=== PATIENT | female | born 1985 | race African-American/Black ===

== ENCOUNTER 2018-01-18 09:45 | Inpatient (IN) | payer OTHER ==
[2018-01-18 14:39] VITALS: BMI 46.3
[2018-01-18] MEDS ORDERED: OXYTOCIN 20 UNITS in 0.9% NS 20 UNIT/1,000 ML INFUS.BAG IV ONE ×2 (15:08→21:44)
[2018-01-18] MEDS ORDERED: DEXTROSE 5%-LACTATED RINGERS 1,000 ML IV SCH (15:30)
[2018-01-18] MEDS ORDERED: BUTORPHANOL TARTRATE 1 MG/ML VIAL IVPUSH ONE (15:30)
[2018-01-18] MEDS ORDERED: PROMETHAZINE HCL 25 MG/1 ML VIAL IVPUSH ONE (15:30)
[2018-01-18] MEDS ORDERED: AMPICILLIN SODIUM 2 GM VIAL ONE (15:31)
--- NOTE | 2018-01-18 15:33 | HP ---
Past Medical History - Primary Care Physician PCP:: Isidoro Bess - Admission Chief Complaint: 39.4 weeks, labor History of Present Illness: 33 yo g 3 p2002 edc by 01/31/18 , in labor , cx 3 cm 80 vx 100 , mi, fhr cat 1 contraction irregular History Source: Patient Limitations to Obtaining History: No Limitations - Past Medical History Pulmonary: Yes: Other ...: 3 ...Para: 2 ...Term: 2 ...LMP: 04/16/17 ... Weeks Gestation by Dates: 39.4 ...EDC by Dates: 01/21/18 Heme/Onc: Yes: Anemia Infectious Disease: Yes: Other (txoplasmosis) - Past Surgical History Hx Myomectomy: No Hx Transabdominal Cerclage: No - Smoking History Smoking history: Never smoked Have you smoked in the past 12 months: No - Alcohol/Substance Use Hx Alcohol Use: No - Social History Usual Living Arrangement: Yes: Alone History of Recent Travel: No Home Medications - Allergies Allergies/Adverse Reactions: Allergies Allergy/AdvReac Type Severity Reaction Status Date / Time egg Allergy Verified 01/18/18 14:30 pineapple Allergy Verified 01/18/18 14:30 - Home Medications Home Medications: Ambulatory Orders Tablet 1 tablet PO DAILY 01/18/18 Review of Systems - Review of Systems Constitutional: reports: No Symptoms Eyes: reports: No Symptoms HENT: reports: No Symptoms Neck: reports: No Symptoms Cardiovascular: reports: No Symptoms Respiratory: reports: No Symptoms Gastrointestinal: reports: No Symptoms Genitourinary: reports: No Symptoms Breasts: reports: No Symptoms Reported Musculoskeletal: reports: No Symptoms Integumentary: reports: No Symptoms Neurological: reports: No Symptoms Endocrine: reports: No Symptoms Hematology/Lymphatic: reports: No Symptoms Psychiatric: reports: No Symptoms Physical Exam - Maternity Vital Signs: Vital Signs Temperature 98.3 F 01/18/18 14:19 Pulse Rate 82 01/18/18 14:19 Respiratory Rate 18 01/18/18 14:19 Blood Pressure 126/78 01/18/18 14:19 O2 Sat by Pulse Oximetry (%) Constitutional: Yes: Well Nourished, No Distress, Calm Eyes: Yes: WNL, Conjunctiva Clear, EOM Intact HENT: Yes: WNL, Atraumatic, Normocephalic Neck: Yes: WNL, Supple, Trachea Midline Cardiovascular: Yes: WNL, Regular Rate and Rhythm Breast(s): Yes: WNL - Abdominal Exam/OB Fundal Height: 40 Number of Fetuses: Single Presentation: Vertex Contractions: Yes Regularity: Irregular Intensity: Moderate Monitor Mode: External Heart Rate Location: [facility] Category: I Accelerations: Uniform Decelerations: None - Vaginal Exam/OB Vaginal Bleediing: Bloody Show Speculum Exam: No Dilatation (cm): 3 cm Effacement (%): 80 Amniotic Membrane Status: Intact Presentation: Vertex/Position Station: -3 - Physical Exam Musculoskeletal: Yes: WNL Extremities: Yes: WNL Edema: LLE: Trace, RLE: Trace Deep Tendon Reflex Grade: Normal +2 ...Motor Strength: WNL Psychiatric: Yes: WNL Hemorrhage Risk Assessment - Risk Factors Medium Risk Factors: Yes: None High Risk Factors: Yes: None Risk Score: 1 Risk Level: Medium Risk Problem List - Problems (1) with 39 completed weeks gestation Code(s): Z3A.39 - 39 WEEKS GESTATION OF (2) Labor established Code(s): BCB5027 - Assessment/Plan admit, if irregular contraction pitocin stimulation, rba discussed
[2018-01-18] MEDS: AMPICILLIN - 2 GM in SODIUM CHLORIDE 100 ML IVPB ONE ×2 (15:39→15:40)
[2018-01-18 15:40] LABS: BASO % 0.1 % (0-2.0); EOS % 0.6 % (0-4.5); HEMATOCRIT 39.2 % (32.4-45.2); HEMOGLOBIN 13.5 GM/dL (10.7-15.3); LYMPH % 23.7 % (8-40); MCH 31.4 pg (25.7-33.7); MCHC 34.4 g/dl (32.0-36.0); MEAN CELL VOLUME 91.4 fl (80-96); MEAN PLT VOLUME 7.9 fl (7.5-11.1); MONO % 12.4 % (3.8-10.2); NEUT % 63.2 % (42.8-82.8); PLATELET COUNT 276 K/MM3 (134-434); RBC 4.29 M/mm3 (3.60-5.2); RDW 14.4 % (11.6-15.6); WHITE BLOOD COUNT 6.3 K/mm3 (4.0-10.0)
[2018-01-18 15:51] LABS: INR 0.94 (0.82-1.09); PROTHROMBIN TIME (PATIENT) 10.6 SEC (9.7-13.0)
[2018-01-18 15:54] LABS: ACTIVATED PTT 27.2 SECONDS (26.9-34.4)
[2018-01-18 16:58] LABS: ANION GAP 13 (8-16); BLOOD UREA NITROGEN 6 mg/dL (7-18); CALCIUM 9.2 mg/dL (8.5-10.1); CHLORIDE 106 mmol/L (98-107); CO2 21 mmol/L (21-32); CREATININE 0.6 mg/dL (0.55-1.02); GLUCOSE,RANDOM 69 mg/dL (74-106); POTASSIUM 3.9 mmol/L (3.5-5.1); SODIUM 140 mmol/L (136-145)
[2018-01-18] MEDS ORDERED: OXYTOCIN 30 UNITS in 0.9% NS 30 UNIT/500 ML INFUS.BAG IVPB SCH (17:15)
[2018-01-18] MEDS ORDERED: BUTORPHANOL TARTRATE 1 MG/ML VIAL ONE ×2 (18:02)
[2018-01-18] MEDS ORDERED: PROMETHAZINE HCL 25 MG/1 ML VIAL ONE (18:02)
[2018-01-18] MEDS ORDERED: AMPICILLIN SODIUM 1 GM VIAL ONE (19:39)
[2018-01-18] MEDS ORDERED: BENZOCAINE 28 GM HEMORRHOIDAL OINTMENT TP PRN (22:10)
[2018-01-18] MEDS ORDERED: BISACODYL 10 MG SUPP.RECT RC PRN (22:10)
[2018-01-18] MEDS ORDERED: METHYLERGONOVINE MALEATE 0.2 MG/1 ML AMP IM PRN (22:10)
[2018-01-18] MEDS ORDERED: BENZOCAINE 20% 57 GM BOTTLE TP PRN (22:10)
[2018-01-18] MEDS ORDERED: WITCH HAZEL 50% (TUCKS) 40 PAD/JAR PAD TP PRN (22:10)
[2018-01-18] MEDS ORDERED: OXYTOCIN 20 UNITS in 0.9% NS 20 UNIT/1,000 ML INFUS.BAG IV SCH (22:15)
[2018-01-18] MEDS ORDERED: D5W-LR W/ 20 UNITS OXYTOCIN 20 UNIT/1,000 ML INFUS.BAG IV SCH (22:15)
[2018-01-18 22:57] LABS: ARTERIAL BLD GAS O2 SATURATION 79.9 % (90-98.9); ARTERIAL BLOOD GAS BASE EXCESS -1.6 meq/l (-2-2); ARTERIAL BLOOD GAS PCO2 41.9 mmHg (35-45); ARTERIAL BLOOD GAS pH 7.36 (7.35-7.45)
[2018-01-18 23:01] LABS: ARTERIAL BLOOD GAS PO2 38.3 mmHg (80-100); VENOUS PH 7.28 (7.32-7.42)
[2018-01-18 23:02] LABS: VENOUS PC02 56.2 mmHg (38-52); VENOUS PO2 21.5 mmHg (28-48)
[2018-01-19] MEDS: AMPICILLIN - 1 GM in SODIUM CHLORIDE 100 ML IVPB SCH ×2 (00:25→10:22)
[2018-01-19 07:46] LABS: BASO % 0.6 % (0-2.0); EOS % 0.1 % (0-4.5); HEMATOCRIT 41.2 % (32.4-45.2); LYMPH % 14.3 % (8-40); MEAN CELL VOLUME 91.4 fl (80-96); MEAN PLT VOLUME 7.7 fl (7.5-11.1); MONO % 9.4 % (3.8-10.2); NEUT % 75.6 % (42.8-82.8); PLATELET COUNT 273 K/MM3 (134-434); RBC 4.51 M/mm3 (3.60-5.2); RDW 14.5 % (11.6-15.6); WHITE BLOOD COUNT 14.6 K/mm3 (4.0-10.0)
[2018-01-19] MEDS: PRENATAL VITAMINS W/ FOLIC ACID TABLET (FP) PO SCH (09:17)
[2018-01-19] MEDS: FERROUS SO4 325 MG TABLET (FP) PO SCH ×2 (09:18→22:37)
[2018-01-19] MEDS: IBUPROFEN 600 MG TABLET (FP) PO PRN (09:18)
[2018-01-19] MEDS: ACETAMINOPHEN 325 MG TABLET (FP) PO PRN (09:19)
[2018-01-19 19:05] LABS: BASO % 0.2 % (0-2.0); EOS % 2.7 % (0-4.5); HEMATOCRIT 37.5 % (32.4-45.2); LYMPH % 22.6 % (8-40); MCH 31.8 pg (25.7-33.7); MCHC 34.7 g/dl (32.0-36.0); MEAN CELL VOLUME 91.7 fl (80-96); MEAN PLT VOLUME 7.7 fl (7.5-11.1); MONO % 9.8 % (3.8-10.2); NEUT % 64.7 % (42.8-82.8); PLATELET COUNT 231 K/MM3 (134-434); RBC 4.08 M/mm3 (3.60-5.2); RDW 14.7 % (11.6-15.6); WHITE BLOOD COUNT 9.4 K/mm3 (4.0-10.0)
--- NOTE | 2018-01-19 19:47 | PN ---
Post Progress Note - Subjective Subjective: 33 yo Para 3 status post vaginal delivery, seen and evaluated. Doing well. Post Day: 1 Type of Delivery: Vital Signs: Vital Signs Temperature 97.9 F 01/19/18 14:00 Pulse Rate 72 01/19/18 14:00 Respiratory Rate 20 01/19/18 14:00 Blood Pressure 119/71 01/19/18 14:00 O2 Sat by Pulse Oximetry (%) Breast Exam: Yes: Soft Uterus: Yes: Fundus Firm Abdomen/GI: Yes: Abdomen soft, Tolerating PO Lochia: Yes: Rubra Lochia, amount: Moderate Extremities: Yes: Calves non-tender Activity: Ambulating - Labs Labs: CBC WBC 9.4 K/mm3 (4.0-10.0) D 01/19/18 18:35 RBC 4.08 M/mm3 (3.60-5.2) 01/19/18 18:35 Hgb 13.0 GM/dL (10.7-15.3) 01/19/18 18:35 Hct 37.5 % (32.4-45.2) 01/19/18 18:35 MCV 91.7 fl (80-96) 01/19/18 18:35 MCH 31.8 pg (25.7-33.7) 01/19/18 18:35 MCHC 34.7 g/dl (32.0-36.0) 01/19/18 18:35 RDW 14.7 % (11.6-15.6) 01/19/18 18:35 Plt Count 231 K/MM3 (134-434) 01/19/18 18:35 MPV 7.7 fl (7.5-11.1) 01/19/18 18:35 Neutrophils % 64.7 % (42.8-82.8) 01/19/18 18:35 Lymphocytes % 22.6 % (8-40) D 01/19/18 18:35 Monocytes % 9.8 % (3.8-10.2) 01/19/18 18:35 Eosinophils % 2.7 % (0-4.5) D 01/19/18 18:35 Basophils % 0.2 % (0-2.0) 01/19/18 18:35 Problem List - Problems (1) Status post normal vaginal delivery Code(s): GRO5113 - Assessment/Plan Status post vaginal delivery Stable Continue routine care
[2018-01-19] MEDS ORDERED: SENNOSIDES/DOCUSATE COMBO (SENNA PLUS) TABLET (UD) PO PRN (22:00)
--- NOTE | 2018-01-20 02:09 | DS ---
Physical Exam-DIRECTOR LOAN Vital Signs: Vital Signs Temperature 98.4 F 01/19/18 20:18 Pulse Rate 86 01/19/18 20:18 Respiratory Rate 20 01/19/18 20:18 Blood Pressure 110/78 01/19/18 20:18 O2 Sat by Pulse Oximetry (%) Constitutional: Yes: Well Nourished Eyes: Yes: Conjunctiva Clear HENT: Yes: Atraumatic Neck: Yes: Supple Cardiovascular: Yes: Regular Rate and Rhythm Respiratory: Yes: Regular Gastrointestinal: Yes: Normal Bowel Sounds External Genitalia: Yes: Normal Vaginal Exam: Yes: Normal Cervix: Yes: Normal Uterus: Yes: Normal ....Post : Yes: Uterus firm, Moderate lochia serosa Neurological: Yes: Alert, Oriented ...Motor Strength: WNL Psychiatric: Yes: Alert, Oriented Labs: CBC, BMP 01/19/18 18:35 01/18/18 14:20 Delivery - Delivery Type of Anesthesia: None Episiotomy/Laceration: None, 1st degree EBL (cc): 300 Delivery, Single - Stages of Labor Date 1st Stage Initiatied: 01/18/18 Time 1st Stage Initiated: 13:00 Date 2nd Stage Initiated: 01/18/18 Time 2nd Stage Initiated: 21:30 Date of Delivery: 01/18/18 Time of Delivery: 21:51 Time Placenta Delivered: 21:55 - Condition of Surveyor Helper Rod/Vascular Nurse Present: [place]: Adeola Bowser Gender: Female Weight: 6 lb 4 oz Position: OA Total Hours ROM (Hrs/Mins): 2hrs.25mins. - 1 Minute Total Score: 9 5 Minutes Total Score: 9 - Feeding Plan Initial Plan: Elected not to breastfeed exclusively throughout hospitalization Discharge Summary Reason For Visit: LABOR Current Active Problems Labor established (Acute) with 39 completed weeks gestation (Acute) Status post normal vaginal delivery (Acute) Procedures: Principal: Normal vaginal delivery Hospital Course: Patient received 2 doses of antibiotic due to unspecified Leukocytosis during her stay. Condition: Stable - Instructions Diet, Activity, Other Instructions: Regular diet No douching, no sexual intercourse x 6 weeks F/U in clinic in 6 weeks Disposition: HOME - Home Medications Comprehensive Discharge Medication List: Ambulatory Orders Tablet 1 tablet PO DAILY 01/18/18
[2018-01-20] MEDS: IBUPROFEN 600 MG TABLET (FP) PO PRN (08:11)
[2018-01-20] MEDS: ACETAMINOPHEN 325 MG TABLET (FP) PO PRN (08:11)
[2018-01-20 09:01] VITALS: BP 130/80; PULSE 83; TEMP 97.6
[2018-01-20] MEDS: FERROUS SO4 325 MG TABLET (FP) PO SCH (09:31)
[2018-01-20] MEDS: PRENATAL VITAMINS W/ FOLIC ACID TABLET (FP) PO SCH (09:32)
[2018-01-20] MEDS ORDERED: DIPHTH,PERTUSS(ACELL),TET 0.5 ML DISP.SYRIN IM ONE (10:00)
== END 2018-01-20 12:45 | disposition home or self-care (01) | DRG 560 ==
LOC: JDEL 09:45 → JLDR 14:00 → J3N 01-19 00:19 → J3W 01-19 14:05
PROVIDERS: ADMIT Obstetrics & Gynecology; ATTEND Obstetrics & Gynecology
PROC: 10E0XZZ Delivery of Products of Conception, External Approach (ICD-10-PCS; principal; 2018-01-18)
PROC: 0W8NXZZ Division of Female Perineum, External Approach (ICD-10-PCS; 2018-01-18)
PROC: 0HQ9XZZ Repair Perineum Skin, External Approach (ICD-10-PCS; 2018-01-18)
DX: O70.0 First degree perineal laceration during delivery (principal); Z3A.39 39 weeks gestation of pregnancy; Z37.0 Single live birth
CPT/HCPCS: 36415; 36600; 59409; 80048; 82803; 85025; 85610; 85730; 86593; 86850; 86900; 86901; 90715

== ENCOUNTER → 2020-06-26 | Day surgery (SDC) | payer OTHER ==
[~2020-06-26] MED LIST: ACETAMINOPHEN 325 MG TABLET (FP) PO PRN; BUPIVACAINE HCL/PF 0.25% (2.5MG/ML) 10 ML VIAL IJ ONE; BUPIVACAINE HCL/PF 0.25% (2.5MG/ML) 10 ML VIAL ONE; DEXAMETHASONE SOD PHOSPHATE 4 MG/1 ML VIAL ONE; KETOROLAC TROMETHAMINE 30 MG/1 ML VIAL ONE; LACTATED RINGERS SOLUTION 1,000 ML IV SCH; LIDOCAINE HCL/PF 2% SDV 5ML VIAL ONE; MIDAZOLAM HCL 2 MG/2 ML SINGLE DOSE VIAL ONE; ONDANSETRON 4 MG/2 ML VIAL IVPUSH PRN; ONDANSETRON 4 MG/2 ML VIAL ONE; PROPOFOL 20 ML ONE; ceFAZolin SODIUM 1 GM VIAL ONE; oxyCODONE HCL 5 MG TABLET ONE; oxyCODONE HCL 5 MG TABLET PO ONE; oxyCODONE HCL 5 MG TABLET PO PRN
--- OUTSIDE RECORDS SUMMARY | 2020-06-26 13:14 | XMS ---
:1985 [facility] Support Name Relationship Address Phone UE Unavailable Unavailable Unavailable MALIKA, TCHAMAMBA [address] [place] [address] NA Unavailable Unavailable Unavailable TCHAMAMBA, MALIKA [address] [facility] [phone] [place] [address] DIEUDORNE, CTHAMAMBA Unavailable [address] [place] [address] [place] [address] Re-disclosure Warning The records that you are about to access may contain information from federally- assisted alcohol or drug abuse programs. If such information is present, then the following federally mandated warning applies: This information has been disclosed to you from records protected by federal confidentiality rules (42 CFR part 2). The federal rules prohibit you from making any further disclosure of this information unless further disclosure is expressly permitted by the written consent of the person to whom it pertains or as otherwise permitted by 42 CFR part 2. A general authorization for the release of medical or other information is NOT sufficient for this purpose. The Federal rules restrict any use of the information to criminally investigate or prosecute any alcohol or drug abuse patient.The records that you are about to access may contain highly sensitive health information, the redisclosure of which is protected by Article 27-F of the [facility] Public Health law. If you continue you may haveaccess to information: Regarding HIV / AIDS; Provided by facilities licensed or operated by the [facility] Office of Mental Health; or Provided by the [facility] Office for People With Developmental Disabilities. If such information is present, then the following [facility] mandated warning applies: This information has been disclosed to you from confidential records which are protected by state law. State law prohibits you from making any further disclosure of this information without the specific written consent of the person to whom it pertains, or as otherwise permitted by law. Any unauthorized further disclosure in violation of state law may result in a fine or nursing home sentence or both. A general authorization for the release of medical or other information is NOT sufficient authorization for further disclosure. Insurance Providers Payer name Policy type Policy ID Covered Covered libertarian's Policy P the[place] / Coverage libertarian ID relationship to [facility] ormation type wright [facility] [id number] MEDICAID COMM PLAN W [id number] Problems, Conditions, and Diagnoses Code Display Name Description Problem Type Effective Dates Data Source(s) R32 Urinary Urinary Problem 11/14/2019 eCW3 ([place] incontinence, incontinence, 12:00:00 AM EST [facility] unspecified type unspecified type Ca re) E66.01 Morbid (severe) Morbid (severe) Problem 11/14/2019 eCW3 ([place] obesity due to obesity due to 12:00:00 AM EST [facility] excess calories excess calories Care ) Z68.42 Body mass index Body mass index Problem 11/14/2019 eCW3 ([place] (BMI) 45.0-49.9, (BMI) 45.0-49.9, 12:00:00 AM E [facility] adult adult Care) Results ID Date Data Source [id number] 06/21/2020 01:30:00 PM EDT [facility] Name Value Range Interpretation Description Data Sup porting Code Source(s) Document(s ) SARS [facility] coronavirus 2 RNA This lab was ordered by DENNIS PERSAUD and reported by [facility]. Procedure Social History Code Duration Value Status Description Data Source(s ) Smoking 11/22/2019 12:00:00 Never Smoker completed Never Smoker e CW3 ([facility])
[2020-06-26 13:31] VITALS: BMI 41.7
--- NOTE | 2020-06-26 14:45 | HP ---
History & Physical Update - History History: No Change - Physical Physical: No Change - Assessment Assessment: No Change - Plan Plan: No Change
--- NOTE | 2020-06-26 17:17 | OPR ---
Procedure: Right knee- 1. Diagnostic arthroscopy. 2. Arthroscopic partial lateral meniscectomy. 3. Arthroscopic knee partial synovectomy. 4. Chondroplasty of the patella, medial femoral condyle, lateral femoral condyle and lateral tibial plateau. 5. Removal of loose body. Preoperative Diagnoses: Right knee- 1. Lateral meniscus derangement 2. Chondromalacia 3. Synovitis Postoperative Diagnoses: Right knee- 1. Lateral meniscus tear 2. Osteochondral defect of patella 3. Grade II and III chondromalacia patella 4. Grade II chondromalacia of the medial femoral condyle 5. Grade II chondromalacia lateral femoral condyle 6. Grade II and III chondromalacia lateral tibia plateau 7. Synovitis Surgeon: Toñito Mccloud DO Assistants: Payam Vazquez DO Anesthesia: General anesthesia Estimated Blood Loss: Minimal Drains: None Total IV Fluids: Per anesthesia record Specimens: None Implants: None Complications: None Disposition: PACU Condition: Hemodynamically stable Tourniquet time: Not inflated Indications: Elvira Hess presented to us with chronic right knee pain that failed conservative measures. Her symptoms, signs, and imaging were consistent with the above noted diagnoses. She ultimately elected to proceed with surgical intervention after discussion of the risks, benefits, alternatives. We discussed risks including but not limited to, bleeding, pain, infection, scarring, damage to neurovascular structures, blood clots, pulmonary embolus, need for additional surgery, incomplete relief of pain, and incomplete return of function. She expressed understanding and wished to proceed. She underwent preoperative medical evaluation clearance and optimization prior to surgery. Procedure Details: On the day of surgery, the patient was seen and identified in the preoperative holding area, and the operative site was confirmed with the patient and marked. The risks and benefits of surgery were again reviewed with the patient, and she elected to proceed. The patient was brought back to the operating room and positioned on the operating room table in a supine position, with care to pad all bony prominences and in neutral alignment. SCDs were placed over the contralateral extremity. A nonsterile tourniquet was placed over the proximal thigh, and the left knee was then prepped and draped in the usual sterile fashion. A timeout was performed, confirming the correct operative site, as well as the administration of IV antibiotics and the availability of all necessary personnel and equipment. Examination under anesthesia showed full range of motion, stable to AP, varus and valgus stresses. 10cc Of 0.25% marcaine were used to infiltrate the portal sites, and through a lateral portal, a diagnostic arthroscopy ensued. This showed mild to moderate inflammed synovitis. The patella was centered in the trochlear groove. There was grade II and III chondromalacia of the patella, including an osteochondral defect of the medial patella facet with overlying fibrocartilage. The trochlea showed no cartilage defects. The medial gutter showed a loose body which was removed with an arthroscopic grasper. The lateral gutter showed no loose bodies. The medial compartment showed Grade II chondromalacia on the medial femoral condyle. There were no chondral defects on the medial tibial plateau. The medial meniscus was probed an found to be intact. The ACL was frayed, but intact. The PCL was probed and found to be intact. The lateral femoral condyle showed grade grade II chondromalacia and the lateral tibial plateau showed grade II and III chondomalacia. The lateral meniscus was probed and found to have a tear of the anterior horn, which had extension into the anterior body. Using a combination of basket forceps and shaver, the lateral meniscus was debrided to a stable edge. A chondroplasty was performed with a shaver at the medial femoral condyle, patella, lateral femoral condyle and lateral tibial plateau until there was a stable base. At this point, attention was turned to the inflammed synovitis, and a two compartment synovectomy was performed at this time. All instruments were removed, and the knee was thoroughly irrigated. Portals were closed using 40 Nylon and dressed with 4x4s, ABDs, webril and a loosely wrapped otoniel bandage. The patient was awakened from anesthesia and transferred to the PACU in stable condition. There were no complications. Postoperative plan: The patient will be weight bearing as tolerated on crutches for 3 days. Physical therapy to begin in 2 weeks.
[2020-06-26 19:01] VITALS: BP 133/84; PULSE 88; TEMP 98
--- NOTE | 2020-07-01 17:21 | PATH ---
Surgical Pathology Report Patient Name: GABI REZA Med. Rec. #: [id number] /Age/Gender: 1985 (Age: 35) / F Account: [id number] Location: [facility] Taken: 06/26/2020 Received: 06/26/2020 Reported: 07/01/2020 Physicians: Toñito Mccloud DO Specimen(s) Received SHAVINGS RIGHT KNEE & LOOSE BODY Clinical History Right knee internal derangement Final Diagnosis SHAVINGS AND LOOSE BODY, KNEE, RIGHT, ARTHROSCOPY, PARTIAL MENISCECTOMY, SYNOVECTOMY, CHONDROPLASTY, REMOVAL OF LOOSE BODY: FRAGMENTS OF CARTILAGE, DENSE FIBROCONNECTIVE TISSUE, ADIPOSE TISSUE, AND SYNOVIUM. ROUND BODIES CONSISTENT OF BENIGN BONE AND CARTILAGE CONSISTENT WITH LOOSE BODIES. Electronically Signed Elissa Sheehan M.D. Gross Description Received in formalin, labeled "right knee shavings and loose body," is a 4.5 x 4.5 x 0.3 cm. aggregate of robison-yellow soft tissue fragments. Also received within the same container is a 0.7 x 0.6 x 0.3 cm robison portion of cartilage, consistent with a loose body. A brand representative portion including the loose body is submitted in one cassette. 06/29/2020 [facility]06/29/2020
== END | disposition home or self-care (01) ==
LOC: FASU 13:10
PROVIDERS: ATTEND Orthopaedic Surgery
PROC: 0SBC4ZZ Excision of Right Knee Joint, Percutaneous Endoscopic Approach (ICD-10-PCS; 2020-06-26)
PROC: 0SCC4ZZ Extirpation of Matter from Right Knee Joint, Percutaneous Endoscopic Approach (ICD-10-PCS; 2020-06-26)
PROC: 0SBC4ZZ Excision of Right Knee Joint, Percutaneous Endoscopic Approach (ICD-10-PCS; 2020-06-26)
PROC: 0SQC4ZZ Repair Right Knee Joint, Percutaneous Endoscopic Approach (ICD-10-PCS; 2020-06-26)
PROC: 0SBC4ZZ Excision of Right Knee Joint, Percutaneous Endoscopic Approach (ICD-10-PCS; principal; 2020-06-26 15:15)
DX: S83.281A Other tear of lateral meniscus, current injury, right knee, initial encounter (principal); M22.8X1 Other disorders of patella, right knee; M94.261 Chondromalacia, right knee; M22.41 Chondromalacia patellae, right knee; M65.9 Synovitis and tenosynovitis, unspecified
CPT/HCPCS: 29875; 29881; G0289; 84703; 88304-TC; 94760

== ENCOUNTER 2023-01-07 13:05 | Inpatient (IN) | payer OTHER ==
[2023-01-07] MEDS ORDERED: FENTANYL/BUPIVACAINE/NS/PF - PCEA - 50 ML DISP.SYRIN EP ONE (14:47)
[2023-01-07 15:26] VITALS: BMI 49.4
[2023-01-07] MEDS ORDERED: ELECTROLYTE-148 SOLN 1,000 ML IV SCH (15:30)
[2023-01-07 15:37] LABS: BASO % 0.4 % (0-2.0); EOS % 0.1 % (0-4.5); HEMATOCRIT 37.8 % (32.4-45.2); HEMOGLOBIN 12.9 GM/dL (10.7-15.3); LYMPH % 9.4 % (8-40); MCH 30.5 pg (25.7-33.7); MEAN CELL VOLUME 89.7 fl (80-96); MEAN PLT VOLUME 7.1 fl (7.5-11.1); MONO % 6.7 % (3.8-10.2); NEUT % 83.4 % (42.8-82.8); PLATELET COUNT 263 10^3/uL (134-434); RBC 4.21 M/mm3 (3.60-5.2); RDW 14.5 % (11.6-15.6); RETICULOCYTES 2.11 % (0.5-1.5); WHITE BLOOD COUNT 10.9 K/mm3 (4.0-10.0)
[2023-01-07 15:41] LABS: PROTHROMBIN TIME (PATIENT) 11.6 SEC (9.7-13.0)
[2023-01-07 15:44] LABS: ACTIVATED PTT 28.4 SECONDS (25.2-36.5)
[2023-01-07] MEDS ORDERED: OXYTOCIN 30 UNITS in 0.9% NS 30 UNIT/500 ML INFUS.BAG IVPB ONE (15:52)
[2023-01-07 15:55] LABS: CALCIUM 9.6 mg/dL (8.5-10.1)
[2023-01-07 15:58] LABS: URIC ACID 4.2 mg/dL (2.6-7.2)
[2023-01-07 15:59] LABS: CREATININE 0.4 mg/dL (0.55-1.3)
[2023-01-07 16:00] LABS: BILIRUBIN,TOTAL 0.3 mg/dL (0.2-1)
[2023-01-07] MEDS ORDERED: OXYTOCIN 30 UNITS in 0.9% NS 30 UNIT/500 ML INFUS.BAG IVPB SCH (16:00)
[2023-01-07 16:01] LABS: TOT PROT 6.8 g/dl (6.4-8.2)
[2023-01-07] MEDS ORDERED: NALOXONE HCL 0.4 MG/ML VIAL IVPUSH PRN (16:23)
[2023-01-07] MEDS ORDERED: FENTANYL/BUPIVACAINE/NS/PF - PCEA - 50 ML DISP.SYRIN EP SCH (16:30)
[2023-01-07] MEDS ORDERED: OXYTOCIN 20 UNITS in 0.9% NS 20 UNIT/1,000 ML INFUS.BAG IV ONE (17:42)
[2023-01-07] MEDS ORDERED: MISOPROSTOL 200 MCG TABLET ONE (18:04)
[2023-01-07] MEDS ORDERED: LIDOCAINE HCL 1% PRESERVATIVE FREE - 30ML VIAL ONE (18:07)
[2023-01-07] MEDS ORDERED: BENZOCAINE 28 GM HEMORRHOIDAL OINTMENT TP PRN (18:22)
[2023-01-07] MEDS ORDERED: ACETAMINOPHEN 325 MG TABLET (FP) PO PRN (18:22)
[2023-01-07] MEDS ORDERED: BENZOCAINE 20% 57 GM BOTTLE TP PRN (18:22)
[2023-01-07] MEDS ORDERED: WITCH HAZEL 50% (TUCKS) 40 PAD/JAR PAD TP PRN (18:22)
[2023-01-07] MEDS ORDERED: BISACODYL 10 MG SUPP.RECT RC PRN (18:22)
[2023-01-07] MEDS ORDERED: MISOPROSTOL 200 MCG TABLET PR ONE (18:24)
[2023-01-07] MEDS ORDERED: OXYTOCIN 20 UNITS in 0.9% NS 20 UNIT/1,000 ML INFUS.BAG IV SCH (18:30)
[2023-01-07 18:53] LABS: VENOUS BASE EXCESS -2.8 mmol/L (-2-2); VENOUS O2 SATURATION 66.4 % (70-80); VENOUS PCO2 43.6 mmHg (38-52); VENOUS PH 7.341 (7.310-7.410)
[2023-01-07 19:54] VITALS: RESP 18
[2023-01-07] MEDS: IBUPROFEN 600 MG TABLET (FP) PO PRN (21:42)
[2023-01-08] MEDS: IBUPROFEN 600 MG TABLET (FP) PO PRN ×2 (02:57→18:16)
[2023-01-08 09:25] LABS: BASO % 0.1 % (0-2.0); EOS % 0.9 % (0-4.5); HEMATOCRIT 34.5 % (32.4-45.2); HEMOGLOBIN 11.9 GM/dL (10.7-15.3); LYMPH % 14.6 % (8-40); MCHC 34.6 g/dl (32.0-36.0); MEAN CELL VOLUME 89.6 fl (80-96); MEAN PLT VOLUME 7.6 fl (7.5-11.1); MONO % 8.7 % (3.8-10.2); NEUT % 75.7 % (42.8-82.8); PLATELET COUNT 243 10^3/uL (134-434); RBC 3.85 M/mm3 (3.60-5.2); RDW 14.3 % (11.6-15.6)
[2023-01-08] MEDS ORDERED: DIPHTH,PERTUSS(ACELL),TET 0.5 ML DISP.SYRIN IM ONE (10:00)
[2023-01-08] MEDS ORDERED: SENNOSIDES/DOCUSATE COMBO (SENNA PLUS) TABLET (UD) PO PRN (22:00)
[2023-01-09 08:55] VITALS: BP 121/74; PULSE 82; TEMP 97.8
[2023-01-09] MEDS: IBUPROFEN 600 MG TABLET (FP) PO PRN (09:23)
== END 2023-01-09 12:10 | disposition home or self-care (01) | DRG 560 ==
LOC: JDEL 13:05 → JLDR 13:55 → J3W 19:52
PROVIDERS: ADMIT Student in an Organized Health Care Education/Training Program; ATTEND Student in an Organized Health Care Education/Training Program
PROC: 0W8NXZZ Division of Female Perineum, External Approach (ICD-10-PCS; principal; 2023-01-07)
PROC: 10E0XZZ Delivery of Products of Conception, External Approach (ICD-10-PCS; 2023-01-07)
PROC: 0HQ9XZZ Repair Perineum Skin, External Approach (ICD-10-PCS; 2023-01-07)
DX: O13.4 Gestational [pregnancy-induced] hypertension without significant proteinuria, complicating childbirth (principal); O99.214 Obesity complicating childbirth; E66.01 Morbid (severe) obesity due to excess calories; O70.0 First degree perineal laceration during delivery; O77.0 Labor and delivery complicated by meconium in amniotic fluid; Z3A.40 40 weeks gestation of pregnancy; Z37.0 Single live birth
CPT/HCPCS: 36415; 59025; 80048; 80053; 82803; 82977; 83010; 84550; 85025; 85045; 85610; 85730; 86780; 86850; 86900; 86901; 90715; C9803-CS; U0003; U0005